=== PATIENT | female | born 1980 | race Two or more races ===

== ENCOUNTER 2017-12-14 21:13 | Emergency (ER) | payer BC, OTHER ==
[~2017-12-14] VITALS: Ht 160 cm; Wt 74.4 kg
[2017-12-14] MEDS ORDERED: METFORMIN HCL1000 M1 ORAL (21:57)
[2017-12-14] MEDS ORDERED: AMARYL2 MG ORAL (21:57)
[2017-12-14 22:00] VITALS: BP 148/89
--- NOTE | 2017-12-14 22:24 | Emergency Room Report ---
History of Present Illness General Chief Complaint: Skin Rash/Abscess Source: Patient Present Illness HPI Is a 37-year-old female with no past medical history. She presents with an boy to the left groin area. Onset for last 3 days. No drainage. No fever. This occur after she was shaving her private area. Denies any other complaint. Pain is 7 out of 10. Allergies: Coded Allergies: No Known Allergies (Unverified , 12/14/17) Patient History Past Medical History: see triage record, old chart reviewed Past Surgical History: none Pertinent Family History: none Social History: Denies: smoking Last Menstrual Period: last wk of Nov Now: No Immunizations: other Reviewed Nursing Documentation: PMH: Agreed, PSxH: Agreed Nursing Documentation-PMH Hx Diabetes: Yes Review of Systems Eye: Denies: eye pain, blurred vision ENT: Denies: ear pain, nose congestion, throat swelling Respiratory: Denies: cough, shortness of breath Cardiovascular: Denies: chest pain, palpitations Gastrointestinal: Denies: abdominal pain, diarrhea, nausea, vomiting Musculoskeletal: Denies: back pain, joint pain Skin: Denies: rash Neurological: Denies: headache, numbness Endocrine: Denies: increased thirst, increased urine Hematologic/Lymphatic: Denies: easy bruising All Other Systems: negative except mentioned in HPI Physical Exam Vital Signs Date Time Temp Pulse Resp B/P (MAP) Pulse Ox O2 Delivery O2 Flow Rate FiO2 12/14/17 21:47 98.4 114 18 148/89 95 Room Air 98.4 vitals normal except for tachycardia Sp02 EP Interpretation: reviewed, normal General Appearance: well appearing, no apparent distress, alert Head: normocephalic, atraumatic Eyes: bilateral eye PERRL, bilateral eye EOMI ENT: hearing grossly normal, normal pharynx Neck: full range of motion, supple, no meningismus Respiratory: chest non-tender, lungs clear, normal breath sounds Cardiovascular #1: regular rate, rhythm, no murmur Gastrointestinal: normal bowel sounds, non tender, no mass, no organomegaly, no bruit, non-distended Genitourinary: other - left inguinal area:Exam done with female nurse as grader tender. She has a 2 x 1 cm indurated area. Does have a central necrosis. Tender to palpation. No crepitance. Musculoskeletal: back normal, gait/station normal, normal range of motion Neurologic: alert, oriented x3 Psychiatric: mood/affect normal Skin: warm/dry Procedures Incision and Drainage Incision and Drainage : Consent: Verbal Site: left groin/inguinal area Blade Size: 11 I & D Procedure: betadine prep, sterile drapes applied Wound Location: pelvis Anesthesia: 1% Lidocaine Volume Anesthetic (ccs): 3 Patient Tolerated: Well Complications: None Progress after local anesthetic, I made a 2 cm incision. There is only scant amount of pus. loculated area broken up. Area irrigated. Recent tolerate procedure without a problem. Medical Decision Making Diagnostic Impression: Primary Impression: Abscess ER Course Patient in an abscess to the groin area. Only small amount of pus with in D. We'll discharge home with prescription for Bactrim. Last Vital Signs Date Time Temp Pulse Resp B/P (MAP) Pulse Ox O2 Delivery O2 Flow Rate FiO2 12/14/17 21:47 98.4 114 18 148/89 95 Room Air 98.4 Status: improved Disposition: HOME, SELF-CARE Condition: Stable Scripts Hydrocodone/Acetaminophen 5-325* (HYDROCODONE/ACETAMINOPHEN 5-325*) 1 Each Tablet 1 TAB ORAL Q6H Y for For Pain, #15 TAB 0 Refills Prov: KRISTEL HELTON M.D. 12/14/17 Trimethoprim/Sulfamethoxazole 160/800* (BACTRIM DS TABLET*) 1 Each Tablet 1 TAB ORAL Q12H, #14 TAB 0 Refills Prov: KRISTEL HELTON M.D. 12/14/17 Referrals: NOT CHOSEN [facility]/,REFERRING (PCP) Patient Instructions: Abscess Additional Instructions: Follow-up with your DrChevy in 7 days. Return of worse. KRISTEL HELTON M.D. Dec 14, 2017 22:24
[2017-12-14] MEDS ORDERED: BACTRIM DS TAB1 EAC1 ORAL (22:26)
[2017-12-14] MEDS ORDERED: HYDROCODON-ACE1 EA15 ORAL (22:26)
[2017-12-14] MEDS ORDERED: Norco 5mg/325mg tab ORAL ONE (22:30)
[2017-12-14 22:35] VITALS: BP 148/89
== END 2017-12-14 22:36 | disposition home or self-care (01) ==
LOC: EMR 22:14
DX: L02.214 Cutaneous abscess of groin (principal); E11.9 Type 2 diabetes mellitus without complications
CPT/HCPCS: 10060; 99284

== ENCOUNTER 2019-10-09 01:56 | Emergency (ER) | payer BC ==
[~2019-10-09] VITALS: Ht 160 cm; Wt 68.0 kg
[~2019-10-09 01:56] MED LIST: AMARYL2 MG ORAL; BACTRIM DS TAB1 EAC1 ORAL; HYDROCODON-ACE1 EA15 ORAL; METFORMIN HCL1000 M1 ORAL
--- NOTE | 2019-10-09 02:08 | NUR ---
ED Nurse Note: PT AMBULATED TO ED C/O QUESADA X2DAYS. REPORTS TAKING IBUPROFEN 800 MG AT 2300 WITH NO RELIEF. DENIES FALL OR TRAUMA. FAMILY AT BEDSIDE. VSS, CRYING AND ANXIOUS. ERMD AT BEDSIDE. WILL CONTINUE TO MONITOR PATIENT.
[2019-10-09] MEDS ORDERED: DiphenhydrAMINE 50mg/ml Inj IVP ONE ×2 (02:15→02:30)
[2019-10-09] MEDS ORDERED: Acetaminophen 500mg (ES) tab ORAL ONE (02:15)
[2019-10-09 02:21] LABS: APPEARANCE,URINE CLEAR; BILIRUBIN, URINE NEGATIVE (NEGATIVE); COLOR,URINE PALE YELLOW; GLUCOSE, URINE (UA) 4+ (NEGATIVE); KETONES,URINE 2+ (NEGATIVE); LEUKOCYTE ESTERASE ,URINE 2+ (NEGATIVE); NITRITE,URINE NEGATIVE (NEGATIVE); PH,URINE 6 (4.5-8.0); PROTEIN,URINE NEGATIVE (NEGATIVE); UROBILINOGEN,URINE NORMAL MG/DL (0.0-1.0)
[2019-10-09] MEDS ORDERED: LORazepam Inj 2mg/ml 1ml IV ONE (02:30)
--- NOTE | 2019-10-09 02:30 | Emergency Room Report ---
History of Present Illness General Chief Complaint: Headache Source: Patient Present Illness HPI 39-year-old female presents with headache that started 24 hours prior to arrival , she states it was gradual in onset, left side of her head, no aggravating relieving factors severity is moderate, constant worsening not sudden in onset no worsening or, position no fevers no chills, no neck stiffness, no history of family head bleeds Allergies: Coded Allergies: No Known Allergies (Unverified , 12/14/17) Patient History Past Medical History: see triage record Reviewed Nursing Documentation: PMH: Agreed; PSxH: Agreed Nursing Documentation-PMH Past Medical History: No History, Except For Hx Diabetes: Yes Review of Systems All Other Systems: negative except mentioned in HPI Physical Exam Vital Signs Date Time Temp Pulse Resp B/P (MAP) Pulse Ox O2 Delivery O2 Flow Rate FiO2 10/09/19 02:02 98.1 95 22 141/90 (107) 99 Room Air Sp02 EP Interpretation: reviewed, normal General Appearance: well appearing, no apparent distress, alert Head: normocephalic, atraumatic Eyes: bilateral eye PERRL, bilateral eye EOMI ENT: uvula midline, moist mucus membranes Neck: supple, thyroid normal, supple/symm/no masses Respiratory: lungs clear, no respiratory distress, no retraction, no accessory muscle use Cardiovascular #1: normal peripheral pulses, regular rate, rhythm, no edema, no gallop, no murmur Gastrointestinal: non tender, soft, no guarding, no rebound Musculoskeletal: normal inspection Neurologic: alert, motor strength/tone normal, therapeutic mentor III-XII nml as tested, oriented x3, sensory intact, cerebellar normal - Finger-nose testing intact, Romberg negative, no pronator drift, speech normal, normal gait, no pronator Psychiatric: anxious Skin: no rash, warm/dry Medical Decision Making Diagnostic Impression: Primary Impression: Headache Qualified Codes: R51 - Headache ER Course Based on the patient's history and physical there is very low clinical suspicion for significant intracranial pathology. There are no red flags of QUESADA, not sudden in onset, not maximal in onset, no acute neurological findings, no fever with head stiffness. Low suspicion for subarachnoid hemorrhage, encephalitis, meningitis. Dispo home w/ return precautions Laboratory Tests Test 10/09/19 02:05 10/09/19 02:18 Urine Color Pale yellow Urine Appearance Clear Urine pH 6 (4.5-8.0) Urine Specific Siler 1.010 (1.005-1.035) Urine Protein Negative (NEGATIVE) Urine Glucose (UA) 4+ (NEGATIVE) H Urine Ketones 2+ (NEGATIVE) H Urine Blood Negative (NEGATIVE) Urine Nitrite Negative (NEGATIVE) Urine Bilirubin Negative (NEGATIVE) Urine Urobilinogen Normal MG/DL (0.0-1.0) Urine Leukocyte Esterase 2+ (NEGATIVE) H Urine RBC 0-2 /HPF (0 - 2) Urine WBC 20-30 /HPF (0 - 2) H Urine Squamous Epithelial Cells Few /LPF (NONE/OCC) Urine Bacteria Few /HPF (NONE) Urine HCG, Qualitative Negative (NEGATIVE) White Blood Count 10.7 K/UL (4.8-10.8) Red Blood Count 5.18 M/UL (4.20-5.40) Hemoglobin 15.0 G/DL (12.0-16.0) Hematocrit 44.4 % (37.0-47.0) Mean Corpuscular Volume 86 FL (80-99) Mean Corpuscular Hemoglobin 29.0 PG (27.0-31.0) Mean Corpuscular Hemoglobin Concent 33.9 G/DL (32.0-36.0) Red Cell Distribution Width 11.3 % (11.6-14.8) L Platelet Count 253 K/UL (150-450) Mean Platelet Volume 10.4 FL (6.5-10.1) H Neutrophils (%) (Auto) 81.1 % (45.0-75.0) H Lymphocytes (%) (Auto) 13.1 % (20.0-45.0) L Monocytes (%) (Auto) 3.8 % (1.0-10.0) Eosinophils (%) (Auto) 1.4 % (0.0-3.0) Basophils (%) (Auto) 0.6 % (0.0-2.0) Prothrombin Time 9.6 SEC (9.30-11.50) Prothrombin Time INR 0.9 (0.9-1.1) PTT 25 SEC (23-33) Sodium Level 137 MMOL/L (136-145) Potassium Level 4.1 MMOL/L (3.5-5.1) Chloride Level 101 MMOL/L (98-107) Carbon Dioxide Level 25 MMOL/L (21-32) Anion Gap 12 mmol/L (5-15) Blood Urea Nitrogen 14 mg/dL (7-18) Creatinine 0.7 MG/DL (0.55-1.30) Estimate Glomerular Filtration Rate > 60 mL/min (>60) Glucose Level 334 MG/DL (74-106) H Calcium Level 9.4 MG/DL (8.5-10.1) Total Bilirubin 0.3 MG/DL (0.2-1.0) Aspartate Amino Transferase (AST) 14 U/L (15-37) L Alanine Aminotransferase (ALT) 25 U/L (12-78) Alkaline Phosphatase 106 U/L (46-116) Total Protein 7.5 G/DL (6.4-8.2) Albumin 3.6 G/DL (3.4-5.0) Globulin 3.9 g/dL Albumin/Globulin Ratio 0.9 (1.0-2.7) L CT/MRI/US Diagnostic Results CT/MRI/US Diagnostic Results : Impression Procedure: CT Head no Contrast CT HEAD Without Contrast: No ICH, mass effect or edema. No evidence of acute cortical stroke. Visualized sinuses and mastoid air cells are clear. Dictated By: Lester Ledbetter MD Electronically Signed By: Signed Date/Time CC: Last Vital Signs Date Time Temp Pulse Resp B/P (MAP) Pulse Ox O2 Delivery O2 Flow Rate FiO2 10/09/19 02:02 98.1 95 22 141/90 (107) 99 Room Air Disposition: HOME, SELF-CARE Condition: Stable Scripts Riboflavin (RIBOFLAVIN) 100 Mg Tablet 400 MG PO DAILY, #120 TAB Prov: Jared Olivares MD 10/09/19 Referrals: [facility]. [facility] Patient Instructions: General Headache Without Cause Additional Instructions: The patient was provided with discharge instructions, notified to follow-up with a primary care doctor and or specialist in the next 24-48 hours, and to return to the ED if they have worsening of their symptoms. Please note that this report is being documented using [employer] technology. This can lead to erroneous entry secondary to incorrect interpretation by the dictating instrument. Jared Olivares MD Oct 09, 2019 02:30
[2019-10-09 02:32] LABS: BASOPHILS % (AUTO) 0.6 % (0.0-2.0); EOSINOPHILS % (AUTO) 1.4 % (0.0-3.0); HEMATOCRIT 44.4 % (37.0-47.0); LYMPHOCYTES % (AUTO) 13.1 % (20.0-45.0); MEAN CORPUSCULAR VOLUME 86 FL (80-99); MONOCYTES % (AUTO) 3.8 % (1.0-10.0); NEUTROPHILS % (AUTO) 81.1 % (45.0-75.0); PLATELET COUNT 253 K/UL (150-450); RED BLOOD COUNT 5.18 M/UL (4.20-5.40); RED CELL DISTRIBUTION WIDTH 11.3 % (11.6-14.8); WHITE BLOOD COUNT 10.7 K/UL (4.8-10.8)
--- NOTE | 2019-10-09 02:34 | NUR ---
ED Nurse Note: PER TYESHA, HOLD ATIVAN ADMINISTRATION. PT IS CALM AND RESTING. FAMILY AT BEDSIDE.
[2019-10-09 02:35] VITALS: BP 138/87
[2019-10-09 02:41] LABS: ANION GAP 12 mmol/L (5-15); BLOOD UREA NITROGEN 14 mg/dL (7-18); CALCIUM 9.4 MG/DL (8.5-10.1); CARBON DIOXIDE 25 MMOL/L (21-32); CHLORIDE 101 MMOL/L (98-107); CREATININE 0.7 MG/DL (0.55-1.30); POTASSIUM 4.1 MMOL/L (3.5-5.1); SODIUM 137 MMOL/L (136-145)
[2019-10-09 02:46] LABS: ALANINE AMINOTRANSFERASE 25 U/L (12-78); ALBUMIN 3.6 G/DL (3.4-5.0); ALBUMIN/GLOBULIN RATIO 0.9 (1.0-2.7); ALKALINE PHOSPHATASE 106 U/L (46-116); ASPARTATE AMINO TRANSFERASE 14 U/L (15-37); BILIRUBIN,TOTAL 0.3 MG/DL (0.2-1.0)
--- NOTE | 2019-10-09 02:49 | NUR ---
ED Nurse Note: PT WENT TO CT VIA WHEELCHAIR ACCOMPANIED BY IMPREGNATOR OPERATOR
[2019-10-09 02:50] LABS: INR 0.9 (0.9-1.1)
--- NOTE | 2019-10-09 03:02 | NUR ---
ED Nurse Note: PT BACK FROM CT VIA WHEELCHAIR ACCOMPANIED BY MANAGER PAYMENT.
--- NOTE | 2019-10-09 03:57 | Diagnostic Imaging Report ---
Indication: Headache for one week Technique: Continuous helical CT scanning of the head was performed without intravenous contrast material. Axial and coronal 5 mm sections were generated. Radiation dose was minimized using automated exposure control Dose: Total Dose Length Product - DLP [address] Dose Index - CTDIvol(s) 62 mGy. Comparison: none Findings: The ventricular system is normal in size and configuration. There is no shift of midline structures. No abnormal extra-axial fluid collections are noted. There is no evidence of intracerebral bleeding. No other abnormal high or low density areas are noted within the brain. . Calvarium is intact. Sinuses are clear. The visualized orbits are unremarkable. The mastoids are clear Impression: Normal CT scan of the head without contrast material. This agrees with the preliminary interpretation provided overnight by [facility] teleradiology service. The CT scanner at [facility] is accredited by the [employer] [place] and the scans are performed using protocols designed to limit radiation exposure to as low as reasonably achievable to attain images of sufficient resolution adequate for diagnostic evaluation.
[2019-10-09] MEDS ORDERED: RIBOFLAVIN100 MG PO (04:09)
[2019-10-09 04:15] VITALS: BP 131/81
--- NOTE | 2019-10-09 04:15 | NUR ---
ER DISCHARGE NOTE: Patient is cleared to be discharged per ERMD, pt is aox4, on room air, with stable vital signs. pt was given dc and prescription instructions, pt was able to verbalize understanding, pt id band and iv site removed without complications. pt is able to ambulate with steady gait. pt took all belongings accompanied by family.
== END 2019-10-09 04:15 | disposition home or self-care (01) ==
LOC: EMR 02:28
DX: R51 Headache (principal); E11.9 Type 2 diabetes mellitus without complications
CPT/HCPCS: 36415; 70450; 80053; 81003; 81025; 85025; 85610; 85730; 87086; 96361; 96374; 96375; 99284; J0780; J1200; J7030; J8540